=== PATIENT | male | born 1990 | race American Indian/Alaskan Native ===

== ENCOUNTER 2017-02-14 14:59 | Emergency (ER) | payer OTHER ==
[2017-02-14 15:05] VITALS: BP 125/70; PULSE 62; RESP 19; TEMP 97.1; O2SAT 100
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
== END 2017-02-14 15:48 | disposition home or self-care (01) ==
LOC: H.ER 14:59
DX: S49.92XA Unspecified injury of left shoulder and upper arm, initial encounter (principal); T14.8 Other injury of unspecified body region; Y04.0XXA Assault by unarmed brawl or fight, initial encounter; Y99.0 Civilian activity done for income or pay

== ENCOUNTER 2017-06-23 09:58 | Emergency (ER) | payer BC, OTHER ==
[2017-06-23 10:04] VITALS: O2SAT 100; BMI 41.2
--- NOTE | 2017-06-23 11:03 | ED PDOC ---
HPI: General Adult Time Seen by Provider: 06/23/17 10:04 Chief Complaint (Nursing): GI Problem History Per: Patient Additional Complaint(s): Pt. states this morning immediately after drinking green tea on an empty stomach he felt "queezy." Shortly after he vomitted "foam." Pt. states nausea persists and he's now continued to have crampy epigastric abdominal pain. Pt. states his last BM was at 0400 today and was "soft stools not diarrhea." He says he feels as if he is about to get diarrhea and has the urge to have a BM. Denies hematemesis, chest pain, fever, SOB, palpitations, melena, hematochezia, BRBPR, previous abdominal surgeries. Past Medical History Reviewed: Historical Data, Nursing Documentation, Vital Signs Vital Signs: Last Vital Signs Temp 98.0 F 06/23/17 13:49 Pulse 54 L 06/23/17 13:49 Resp 18 06/23/17 13:49 BP 111/54 L 06/23/17 13:49 Pulse Ox 100 06/23/17 13:49 - Medical History PMH: Asthma Denies: Chronic Kidney Disease - Family History Family History: States: Unknown Family Hx - Immunization History Hx Tetanus Toxoid Vaccination: Yes (Up to date) - Home Medications Home Medications: Ambulatory Orders Medication Instructions Recorded Naproxen 500 mg PO Q12 #20 tab 02/06/15 Ibuprofen [Motrin] 600 mg PO Q8 PRN #6 tab 04/30/15 oxyCODONE/Acetaminophen [Percocet 1 ea PO BID PRN #8 tab 04/30/15 5/325 mg Tab] Amoxicillin 500 mg PO BID #14 cap 01/22/16 Ciprofloxacin HCl/Dexameth 1 - 2 drop OT TID #7.5 ml 01/22/16 [Ciprodex 0.3%-0.1% 7.5 ml] Amoxicillin/Clavulanate [Augmentin 1 tab PO BID #20 tab 01/24/16 875 MG-125 MG] Ibuprofen [Motrin] 600 mg PO Q6 PRN #15 tab 01/24/16 oxyCODONE/Acetaminophen [Percocet 1 ea PO Q6H PRN #8 tab 01/24/16 5/325 mg Tab] Amoxicillin/Potassium Clav 1 tab PO BID #20 tablet 02/18/16 [Augmentin 875-125 Tablet] Ibuprofen [Motrin Tab] 800 mg PO Q8 PRN #20 tab 06/22/16 Metaxalone [Skelaxin] 800 mg PO TID PRN #20 tablet 06/22/16 oxyCODONE/Acetaminophen [Percocet 1 ea PO Q6H PRN #10 tab 06/22/16 5/325 mg Tab] predniSONE [Prednisone] 10 mg PO BID #10 tab 06/22/16 Dicyclomine [Bentyl] 20 mg PO Q8 PRN #30 tab 06/23/17 Famotidine [Pepcid] 20 mg PO DAILY PRN #30 tab 06/23/17 Ondansetron ODT [Zofran ODT] 4 mg PO TID #20 odt 06/23/17 - Allergies Allergies/Adverse Reactions: Allergies Allergy/AdvReac Type Severity Reaction Status Date / Time No Known Allergies Allergy Verified 01/22/16 15:20 Review of Systems ROS Statement: Except As Marked, All Systems Reviewed And Found Negative Gastrointestinal: Positive for: Nausea, Vomiting, Abdominal Pain Physical Exam - Physical Exam Appears: Positive for: Well, Non-toxic, No Acute Distress Skin: Positive for: Normal Color, Warm. Negative for: Rash Eye Exam: Positive for: Normal appearance, EOMI, PERRL. Negative for: Scleral icterus ENT: Positive for: Other (mucous membranes moist) Neck: Positive for: Normal, Painless ROM Cardiovascular/Chest: Positive for: Regular Rate, Rhythm Respiratory: Positive for: CNT, Normal Breath Sounds Gastrointestinal/Abdominal: Positive for: Normal Exam, Bowel Sounds, Soft. Negative for: Tenderness Back: Positive for: Normal Inspection. Negative for: L CVA Tenderness, R CVA Tenderness Extremity: Positive for: Normal ROM Neurologic/Psych: Positive for: Alert, Oriented - Laboratory Results Result Diagrams: 06/23/17 11:11 06/23/17 11:11 - ECG ECG: Positive for: Interpreted By Me ECG Rhythm: Positive for: Sinus Bradycardia. Negative for: ST/T Changes Rate: 52 O2 Sat by Pulse Oximetry: 100 - Progress ED Course And Treament: Labs ordered. Pepcid 20mg IV, maalox 30ml PO, zofran 4mg IV, bentyl 20mg PO, IV NS bolus x 1 ordered. On re-evaluation, pt. reports he is feeling much better. Reports that he had 1 episode of watery non-bloody stool. Tolerating PO fluids in ED. Disposition - Clinical Impression Clinical Impression: Gastroenteritis - Patient ED Disposition Is Patient to be Admitted: No - Disposition Referrals: [facility] Wills [Outside] Disposition: Routine/Home Disposition Time: 13:00 Condition: IMPROVED Prescriptions: Dicyclomine [Bentyl] 20 mg PO Q8 PRN #30 tab PRN Reason: abdominal pain Famotidine [Pepcid] 20 mg PO DAILY PRN #30 tab PRN Reason: abdominal pain Ondansetron ODT [Zofran ODT] 4 mg PO TID #20 odt Forms: [employer] ([place]), [facility] ED School/Work Excuse Print Language: GREENLANDIC
[2017-06-23 11:29] LABS: BASO % 0.6 % (0.0-2.0); EOS # 0.1 K/uL (0.0-0.7); HEMATOCRIT 44.2 % (35.0-51.0); LYMPH # 2.1 K/uL (1.0-4.3); LYMPH % 45.2 % (20.0-40.0); MEAN CELL VOLUME 86.6 fl (80.0-94.0); MEAN CORPUSCULAR HEMOGLOBIN 29.3 pg (27.0-31.0); MEAN CORPUSCULAR HGB CONC 33.8 g/dL (33.0-37.0); MONO # 0.3 K/uL (0.0-0.8); NEUT # 2.1 K/uL (1.8-7.0); NEUT % 45.2 % (50.0-75.0); RED CELL DISTRIBUTION WIDTH 13.8 % (11.5-14.5); WHITE BLOOD COUNT 4.7 K/uL (4.8-10.8)
[2017-06-23] MEDS ORDERED: Alum-Mag Hydrox-Simethicone Susp (30 mL) ONE (11:37)
[2017-06-23] MEDS: Sodium Chloride 0.9% 1,000 ML IV STA (11:40)
[2017-06-23] MEDS: Alum-Mag Hydrox-Simethicone Susp (30 mL) PO STA (11:45)
[2017-06-23 11:50] LABS: ALB/GLOB RATIO 1.4 (1.0-2.1); ALKALINE PHOSPHATASE 68 U/L (38-126); ALT/SGPT 40 U/L (21-72); AST/SGOT 43 U/L (17-59); BILIRUBIN,TOTAL 1.3 mg/dl (0.2-1.3); BLOOD UREA NITROGEN 12 mg/dl (9-20); CALCIUM 9.2 mg/dL (8.4-10.2); CARBON DIOXIDE 25 mmol/L (22-30); CHLORIDE 104 mmol/L (98-107); GFR AFRICAN-AMERICAN > 60; GLUCOSE,RANDOM 92 mg/dL (75-110); LIPASE 87 U/L (23-300); POTASSIUM 4.5 MMOL/L (3.6-5.0); SODIUM 139 mmol/l (132-148); TOTAL PROTEIN 7.7 G/DL (6.3-8.2)
[2017-06-23 13:50] VITALS: BP 111/54; RESP 18; TEMP 98
[2017-06-23 13:56] VITALS: PULSE 52
--- NOTE | 2017-06-24 11:52 | CARD ---
APPROVED REPORT EKG Measurement Heart [id number] <Conclusion> Sinus bradycardia Otherwise normal ECG
== END 2017-06-23 14:21 | disposition home or self-care (01) ==
LOC: H.ER 09:58
DX: K52.9 Noninfective gastroenteritis and colitis, unspecified (principal); J45.909 Unspecified asthma, uncomplicated
CPT/HCPCS: 80053; 83690; 85025; 93005; 96361; 96374; 96375; 99283; J2405; J7040

== ENCOUNTER 2018-02-01 07:16 | Emergency (ER) | payer BC, OTHER ==
[2018-02-01 07:25] VITALS: BMI 43.1
[2018-02-01 07:27] VITALS: BP 121/83; PULSE 61; RESP 20; TEMP 97
[2018-02-01] MEDS ORDERED: Albuterol-Ipratrop 3 mg / 0.5 (3 ml) UD IH STA (07:35)
--- NOTE | 2018-02-01 07:38 | ED PDOC ---
HPI: CCC, URI, Sore Throat Time Seen by Provider: 02/01/18 07:29 History Per: Patient Onset/Duration Of Symptoms: Days (4) Current Symptoms Are (Timing): Still Present Location Of Pain: denies: Throat, Sinus/es Sick Contacts (Context): Family Member(s) Associated Symptoms: Cough, Sputum. denies: Fever, Sinus Drainage Severity: Moderate Additional Complaint(s): Cough productive green sputum x 3-4 days. Assoc with SOB. Denies fever or wheezing. Chest pain when coughing Past Medical History Vital Signs: Last Vital Signs Temp 97 F L 02/01/18 07:27 Pulse 61 02/01/18 07:27 Resp 20 02/01/18 07:27 BP 121/83 02/01/18 07:27 Pulse Ox 98 02/01/18 07:38 - Medical History PMH: Asthma Denies: Chronic Kidney Disease - Family History Family History: States: Unknown Family Hx - Immunization History Hx Tetanus Toxoid Vaccination: Yes (Up to date) - Home Medications Home Medications: Ambulatory Orders Medication Instructions Recorded Albuterol 0.083% [Albuterol 3 ml IH Q6 #1 neb 02/01/18 Sulfate 3 Ml] Albuterol HFA [Ventolin HFA 90 2 puff IH Q4H #1 puff 02/01/18 mcg/actuation (8 g)] Azithromycin [Zithromax] 250 mg PO DAILY #6 tab 02/01/18 Non-Formulary 1 ea .ROUTE Q6 #1 ea 02/01/18 Prednisone 50 mg PO DAILY #5 tab 02/01/18 - Allergies Allergies/Adverse Reactions: Allergies Allergy/AdvReac Type Severity Reaction Status Date / Time No Known Allergies Allergy Verified 02/01/18 07:42 Review of Systems Constitutional: Negative for: Fever Cardiovascular: Positive for: Chest Pain Respiratory: Positive for: Cough, Shortness of Breath, SOB with Exertion, Pleuritic Pain, Sputum Physical Exam - Physical Exam Appears: Positive for: Non-toxic, No Acute Distress Skin: Positive for: Normal Color, Warm, DRY ENT: Negative for: Pharyngeal Erythema, Tonsillar Exudate, Tonsillar Swelling Neck: Positive for: Normal, Painless ROM Cardiovascular/Chest: Positive for: Regular Rate, Rhythm Respiratory: Positive for: Rhonchi. Negative for: Wheezing, Respiratory Distress Neurologic/Psych: Positive for: Alert, Oriented - ECG O2 Sat by Pulse Oximetry: 98 Disposition - Clinical Impression Clinical Impression: Bronchitis - Patient ED Disposition Is Patient to be Admitted: No Counseled Patient/Family Regarding: Studies Performed, Diagnosis, Need For Followup, Rx Given - Disposition Referrals: [facility] [Outside] Disposition: Routine/Home Disposition Time: 07:45 Condition: FAIR Prescriptions: Albuterol 0.083% [Albuterol Sulfate 3 Ml] 3 ml IH Q6 #1 neb Albuterol HFA [Ventolin HFA 90 mcg/actuation (8 g)] 2 puff IH Q4H #1 puff Azithromycin [Zithromax] 250 mg PO DAILY #6 tab Non-Formulary 1 ea .ROUTE Q6 #1 ea Prednisone 50 mg PO DAILY #5 tab Instructions: Acute Bronchitis
[2018-02-01] MEDS ORDERED: Albuterol-Ipratrop 3 mg / 0.5 (3 ml) UD ONE (07:44)
[2018-02-01 08:09] VITALS: O2SAT 100
--- NOTE | 2018-02-01 08:39 | RAD ---
HISTORY: cough COMPARISON: Chest radiographs 06/22/2016. TECHNIQUE: Chest PA and lateral FINDINGS: LUNGS: No active pulmonary disease. PLEURA: No significant pleural effusion identified. No pneumothorax apparent. CARDIOVASCULAR: Normal. OSSEOUS STRUCTURES: No significant abnormalities. VISUALIZED UPPER ABDOMEN: Normal. OTHER FINDINGS: None. IMPRESSION: No interval acute cardiopulmonary disease appreciated.
== END 2018-02-01 08:15 | disposition home or self-care (01) ==
LOC: H.ER 07:16
DX: J40 Bronchitis, not specified as acute or chronic (principal)

== ENCOUNTER 2018-07-02 04:31 | Emergency (ER) | payer OTHER ==
[2018-07-02 04:32] VITALS: BMI 43.1
[2018-07-02 04:46] VITALS: BP 149/86; PULSE 93; RESP 18; TEMP 97.6; O2SAT 100
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
== END 2018-07-02 05:15 | disposition home or self-care (01) ==
LOC: H.ER 04:31
DX: Z77.21 Contact with and (suspected) exposure to potentially hazardous body fluids (principal); J45.909 Unspecified asthma, uncomplicated

== ENCOUNTER 2018-11-22 23:40 | Emergency (ER) | payer OTHER ==
[2018-11-22 23:40] VITALS: BMI 43.1
[2018-11-22 23:48] VITALS: TEMP 98.6
[2018-11-22] MEDS ORDERED: Albuterol-Ipratrop 3 mg / 0.5 (3 ml) UD INH STA (23:56)
[2018-11-23] MEDS ORDERED: Albuterol-Ipratrop 3 mg / 0.5 (3 ml) UD ONE (00:07)
--- NOTE | 2018-11-23 01:00 | ED PDOC ---
HPI: SOB/CHF/COPD Time Seen by Provider: 11/22/18 23:42 Chief Complaint (Nursing): Respiratory Distress Chief Complaint (Provider): Shortness of Breath History Per: Patient History/Exam Limitations: no limitations Onset/Duration Of Symptoms: Days (x 1) Current Symptoms Are (Timing): Still Present Additional Complaint(s): 28 year old male with a history of asthma and seasonal allergies presents to the ED for evaluation of shortness of breath and wheezing. He reports that seasonal allergies often trigger his asthma. Patient does not have an inhaler or medications on his person. Offers no other complaints. PMD: none provided Past Medical History Reviewed: Historical Data, Nursing Documentation, Vital Signs Vital Signs: Last Vital Signs Temp 98.6 F 11/22/18 23:44 Pulse 74 11/22/18 23:44 Resp 19 11/23/18 00:16 BP 149/81 11/22/18 23:44 Pulse Ox 100 11/23/18 00:16 - Medical History PMH: Asthma Denies: Chronic Kidney Disease - Surgical History Surgical History: No Surg Hx - Family History Family History: States: Unknown Family Hx - Living Arrangements Living Arrangements: With Family - Social History Current smoker - smoking cessation education provided: No Alcohol: None - Immunization History Hx Tetanus Toxoid Vaccination: Yes (Up to date) - Home Medications Home Medications: Ambulatory Orders Medication Instructions Recorded Albuterol 0.083% [Albuterol 3 ml IH Q6 #1 neb 02/01/18 Sulfate 3 Ml] Albuterol HFA [Ventolin HFA 90 2 puff IH Q4H #1 puff 02/01/18 mcg/actuation (8 g)] Azithromycin [Zithromax] 250 mg PO DAILY #6 tab 02/01/18 Non-Formulary 1 ea .ROUTE Q6 #1 ea 02/01/18 Prednisone 50 mg PO DAILY #5 tab 02/01/18 Albuterol HFA [Ventolin HFA 90 1 - 2 puff IH Q6 PRN #1 inhaler 11/23/18 mcg/actuation (8 g)] Cetirizine HCl [Zyrtec] 10 mg PO QAM #10 capsule 11/23/18 Olopatadine 0.1% Opht [Patanol 5 1 drop OP QAM #1 bottle 11/23/18 Ml] predniSONE [predniSONE Tab] 60 mg PO QA #12 tab 11/23/18 - Allergies Allergies/Adverse Reactions: Allergies Allergy/AdvReac Type Severity Reaction Status Date / Time No Known Allergies Allergy Verified 07/02/18 04:43 Review of Systems ROS Statement: Except As Marked, All Systems Reviewed And Found Negative Constitutional: Negative for: Fever, Chills Respiratory: Positive for: Shortness of Breath, Wheezing Musculoskeletal: Negative for: Leg Pain Physical Exam - Reviewed Nursing Documentation Reviewed: Yes Vital Signs Reviewed: Yes - Physical Exam Appears: Positive for: Non-toxic, No Acute Distress Head Exam: Positive for: ATRAUMATIC, NORMAL INSPECTION, NORMOCEPHALIC Skin: Positive for: Normal Color, Warm, Dry Eye Exam: Positive for: EOMI, PERRL, Other (redness to eyes bilaterally) Neck: Positive for: Normal, Painless ROM, Supple Cardiovascular/Chest: Positive for: Regular Rate, Rhythm. Negative for: Murmur Respiratory: Positive for: Wheezing (mild expiratory wheeze bilaterally). Negative for: Respiratory Distress Gastrointestinal/Abdominal: Positive for: Normal Exam, Soft. Negative for: Tenderness Back: Positive for: Normal Inspection. Negative for: L CVA Tenderness, R CVA Tenderness Extremity: Positive for: Normal ROM (x 4). Negative for: Deformity Neurological/Psych: Positive for: Awake, Alert, Normal Tone, Oriented (x 3). Negative for: Motor/Sensory Deficits - ECG O2 Sat by Pulse Oximetry: 100 (RA) Pulse Ox Interpretation: Normal Medical Decision Making Medical Decision Makin:56 Impression: 28 year old male with asthma exacerbation Initial Plan: --EKG --Claritin 10 mg PO --Duoneb 3 ml INH --Prednisone 60 mg PO --Peak flow pre/post 00:55 --Claritin 10 mg PO 01:09 Patient reports improvement of symptoms and is stable for discharge. Diagnosis is allergic asthma. Scribe Attestation: Documented by Jessica Cosby, acting as a scribe Jessi Pina MD Provider Scribe Attestation: All medical record entries made by the Scribe were at my direction and personally dictated by me. I have reviewed the chart and agree that the record accurately reflects my personal performance of the history, physical exam, medical decision making, and the department course for this patient. I have also personally directed, reviewed, and agree with the discharge instructions and disposition Disposition - Clinical Impression Clinical Impression: Allergic asthma - Patient ED Disposition Is Patient to be Admitted: No - Disposition Disposition: Routine/Home Disposition Time: 01:10 Condition: IMPROVED Prescriptions: Albuterol HFA [Ventolin HFA 90 mcg/actuation (8 g)] 1 - 2 puff IH Q6 PRN #1 inhaler PRN Reason: Shortness Of Breath Cetirizine HCl [Zyrtec] 10 mg PO QAM #10 capsule Olopatadine 0.1% Opht [Patanol 5 Ml] 1 drop OP QAM #1 bottle predniSONE [predniSONE Tab] 60 mg PO QAM #12 tab Instructions: Medicines for Asthma Forms: [employer] ([place])
[2018-11-23 01:28] VITALS: BP 124/77; PULSE 82; RESP 22; O2SAT 98
--- NOTE | 2018-11-23 08:58 | CARD ---
APPROVED REPORT Date of service: 11/22/2018 EKG Measurement Heart [id number] <Conclusion> Normal sinus rhythm Nonspecific T wave abnormality Abnormal ECG
== END 2018-11-23 01:28 | disposition home or self-care (01) ==
LOC: H.ER 23:40
DX: J45.909 Unspecified asthma, uncomplicated (principal); J44.9 Chronic obstructive pulmonary disease, unspecified; J45.901 Unspecified asthma with (acute) exacerbation; Z79.899 Other long term (current) drug therapy